=== PATIENT | female | born 1960 | race Caucasian/White ===

== ENCOUNTER 2019-02-25 16:28 | Emergency (ER) | payer BC ==
[~2019-02-25] VITALS: Ht 154.9 cm; Wt 86.2 kg
--- OUTSIDE RECORDS SUMMARY | 2019-02-25 16:30 | XMS REPORT ---
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 Allergies, Adverse Reactions, Alerts This patient has no known allergies or adverse reactions. Medications This patient has no known medications. Results Test Description Test Time Test Comments Text Results Atomic Results Result Comments CT BRAIN WO [place] [address] Patient Name: NURY RAMEY MR #: [id number] : 1960 Age/Sex: 56/F Req #: [id number] Adm Physician: Ordered by: ROBIN CORNEJO MD Report #: [id number] Location: ER Room/Bed: Procedure: [id number] CT/CT BRAIN WO Exam Date: 12/15/16 Exam Time: 1714 REPORT STATUS: Signed History:Dizziness, headache Comparison studies:None Technique: Axial images were obtained from the skull base to the vertex. Coronal and sagittal images reconstructed from the axial data. Intravenous contrast: None Findings: Scalp/skull: No abnormalities. Extra-axial spaces: No masses. No fluid collections. Brain sulci: Age-appropriate. Ventricles: Age-appropriate. No hydrocephalus. Parenchyma: Small hypodensities in the bifrontal deep white matter are nonspecific. No masses, hemorrhage, acute or chronic cortical vascular insults. Sellar/suprasellar region: No abnormalities. Craniocervical junction: Patent foramen magnum. No Chiari one malformation. Incidental findings: Atherosclerotic calcifications in the carotid siphons . Impression: No acute abnormalities. Nonspecific bifrontal deep white matter hypodensities, most commonly seen in chronic microvascular ischemic changes. Signed by: DR Dale Noyola M.D. on 12/15/2016 5:37 PM Dictated By: DALE RAMIREZ MD 36 Transcribed By: YASSINE on 12/15/161736 COPY TO: ROBIN CORNEJO MD CHEST 2 VIEWS [place] [address] Patient Name: NURY RAMEY MR #: [id number] : 1960 Age/Sex: 56/F Req #: [id number] Adm Physician: Ordered by: ROBIN CORNEJO MD Report #: [id number] Location: ER Room/Bed: Procedure: [id number] DX/CHEST 2 VIEWS Exam Date: 12/15/16 Exam Time: 1725 REPORT STATUS: Signed PROCEDURE: Frontal and lateral views of the chest. COMPARISON: None. INDICATIONS: HEAD INJURY DIZZY. FINDINGS: Lines/tubes: None. Lungs: The lungs are well inflated and clear. There is no evidence of p neumonia or pulmonary edema. Pleura: There is no pleural effusion or pneumothorax. Heart and mediastinum: The heart and the mediastinum are normal. Bones: No acute bony abnormality. IMPRESSION: 1. No acute cardiopulmonary disease. Jayden Syed M.D. Dictated by: Jayden Syed M.D. on 12/15/2016 at 18:11 Electronically approved by: Jayden Syed M.D. on 12/15/2016 at 18:11 Dictated By: LAURENCE SYED MD, MD 10 Transcribed By: IZABELLA on 12/15/161810 COPY TO: ROBIN CORNEJO MD
[2019-02-25] MEDS ORDERED: PREDNISONE 20 MG TAB PO NR (17:00)
[2019-02-25] MEDS ORDERED: HYDROCODONE/APAP 5MG-325MG TAB PO ONE (17:00)
[2019-02-25] MEDS ORDERED: ONDANSETRON HCL 4 MG ORAL DISINTEGRATING TAB PO ONE (17:00)
[2019-02-25] MEDS ORDERED: KETOROLAC TROMETHAMINE 60 MG/2 ML VIAL IM ONE (17:00)
[2019-02-25] MEDS ORDERED: HYDROCODONE/APAP 5MG-325MG TAB ONE (17:01)
[2019-02-25] MEDS ORDERED: KETOROLAC TROMETHAMINE 60 MG/2 ML VIAL ONE (17:01)
[2019-02-25] MEDS ORDERED: PREDNISONE 20 MG TAB ONE (17:01)
[2019-02-25] MEDS ORDERED: ONDANSETRON HCL 4 MG ORAL DISINTEGRATING TAB ONE (17:01)
[2019-02-25 17:17] VITALS: BP 135/69
--- NOTE | 2019-02-25 18:12 | Diagnostic Imaging Report ---
Examination: CT LUMBAR SPINE WITHOUT CONTRAST History: Low back pain radiating down the back of the legs Comparison studies: None Technique: Axial images were obtained through the lumbar spine from T12. Coronal and sagittal reconstructions obtained from the axial data. Dose modulation, iterative reconstruction, and/or weight based adjustment of the mA/kV was utilized to reduce the radiation dose to as low as reasonably achievable. Intravenous contrast: None Findings: The usual 5 non-rib bearing lumbar vertebral bodies are present. Alignment: Normal lordosis. No scoliosis. Soft tissues: No abnormalities. Paraspinal muscles: No abnormalities. Sacroiliac joints: No degenerative changes. Vertebrae: No fractures, infection or neoplasm. Degenerative changes: Severe Schmorl's nodes throughout the lumbar vertebrae. L1-L2: No abnormalities. L2-L3: No abnormalities. L3-L4: Asymmetric to the left disc bulge results in moderate to severe left foraminal stenosis. No right foraminal or canal stenosis. L4-L5: No abnormalities. L5-S1: No abnormalities. IMPRESSION: Moderate to severe left foraminal stenosis due to asymmetric to the left disc bulge at L3-L4. No canal stenosis. Signed by: Dr. Vanessa Marcano M.D. on 02/25/2019 6:09 PM
== END 2019-02-25 18:42 | disposition home or self-care (01) ==
LOC: FSED 16:28
DX: M51.16 Intervertebral disc disorders with radiculopathy, lumbar region (principal); M47.26 Other spondylosis with radiculopathy, lumbar region; F17.200 Nicotine dependence, unspecified, uncomplicated; E66.9 Obesity, unspecified; Z68.35 Body mass index [BMI] 35.0-35.9, adult
CPT/HCPCS: 72131; 81003; 96372; 99283; J1885; J7512; Q0162